=== PATIENT | female | born 1990 | race Two or more races ===

== ENCOUNTER 2016-09-16 20:18 | Emergency (ER) | payer SELFPAY ==
[~2016-09-16] VITALS: Ht 162.6 cm; Wt 99.0 kg
[2016-09-16 20:39] VITALS: BP 127/58
== END 2016-09-16 22:20 | disposition home or self-care (01) ==
LOC: ER 20:25
DX: O26.893 Other specified pregnancy related conditions, third trimester (principal); J06.9 Acute upper respiratory infection, unspecified; Z3A.38 38 weeks gestation of pregnancy

== ENCOUNTER 2016-10-05 16:00 | Observation (INO) | payer OTHER ==
[2016-10-05 17:14] LABS: Urine Bilirubin Negative (Negative); Urine Blood Negative /uL (Negative); Urine Color Yellow (Yellow); Urine Glucose Normal (Normal); Urine Ketone Negative (Negative); Urine Mucus FEW (None Seen); Urine Nitrite Negative (Negative); Urine RBC 1 /hpf (0 - 4); Urine Squamous Epithelial Cell FEW /hpf (<5); Urine Urobilinogen Normal (Negative)
[2016-10-05 18:36] LABS: Basophils # (auto) 0.1 uL; Basophils % (auto) 0.8 % (0.0-2.0); Eosinophils # (auto) 0.1 uL; Eosinophils % (auto) 0.9 % (0.0-7.0); Hematocrit 35.2 % (36.0-46.0); Hemoglobin 11.2 g/dL (12.2-16.2); Lymphocytes # (auto) 2.1 uL; Lymphocytes % (auto) 17.9 % (10.0-50.0); Mean Corpuscular Hemoglobin 27.4 pg (28.0-32.0); Mean Corpuscular Hgb Conc. 31.8 g/dL (32.0-36.0); Mean Corpuscular Volume 86.2 fL (80.0-100.0); Mean Platelet Volume 8.9 fL (7.4-10.4); Monocytes # (auto) 0.9 uL; Monocytes % (auto) 7.9 % (0.0-12.0); Neutrophils # (auto) 8.4 uL; Neutrophils % (auto) 72.5 % (37.0-80.0); Platelet Count (auto) 395 10^3/uL (140-450); Red Cell Distribution Width 14.3 % (11.6-16.0); White Blood Cell 11.6 10^3/uL (4.4-10.8)
== END 2016-10-05 19:22 | disposition home or self-care (01) | DRG 566 ==
LOC: LDRP 16:00
PROVIDERS: ADMIT Obstetrics & Gynecology; ATTEND Obstetrics & Gynecology
DX: O62.9 Abnormality of forces of labor, unspecified (principal); O26.893 Other specified pregnancy related conditions, third trimester; O21.2 Late vomiting of pregnancy; R10.9 Unspecified abdominal pain; Z3A.37 37 weeks gestation of pregnancy
CPT/HCPCS: 36415; 59025; 76805; 76818; 81001; 81002; 85025; G0378; G0434

== ENCOUNTER 2016-10-11 08:25 | Observation (INO) | payer OTHER ==
[2016-10-11] MEDS ORDERED: ceFAZolin 1GM/50ML D5W 50 ML IV ONE (10:01)
[2016-10-12] MEDS ORDERED: PREN-96 PO (16:08)
== END 2016-10-11 11:15 | disposition home or self-care (01) | DRG 566 ==
LOC: LDRP 08:25
PROVIDERS: ADMIT Obstetrics & Gynecology; ATTEND Obstetrics & Gynecology
DX: O62.9 Abnormality of forces of labor, unspecified (principal); O48.0 Post-term pregnancy; Z3A.40 40 weeks gestation of pregnancy; O99.333 Smoking (tobacco) complicating pregnancy, third trimester
CPT/HCPCS: 59025; 76818; 81002; G0378; J0690

== ENCOUNTER 2018-05-24 04:48 | Inpatient (IN) | payer MEDICAID ==
[~2018-05-24] VITALS: Ht 162.6 cm; Wt 99.3 kg
[~2018-05-24 04:48] MED LIST: PREN-96 PO
[2018-05-24] MEDS ORDERED: DERMOPLAST 60ML BOTTLE TOP PRN (05:15)
[2018-05-24] MEDS ORDERED: OXYTOCIN 10UNIT/ML 1ML VIAL IM ONE (05:15)
[2018-05-24] MEDS ORDERED: METHYLERGONOVINE MALEATE 0.2 MG/ML AMP IM PRN (05:15)
[2018-05-24] MEDS ORDERED: PHISODERM TOP SOLN 240ML BTL TOP PRN (05:15)
[2018-05-24] MEDS ORDERED: WITCH HAZEL-GLYCERIN PAD TOP PRN (05:15)
[2018-05-24 05:49] LABS: Basophils # (auto) 0.1 uL; Basophils % (auto) 0.8 % (0.0-2.0); Eosinophils # (auto) 0 uL; Eosinophils % (auto) 0.2 % (0.0-7.0); Hematocrit 37.2 % (36.0-46.0); Hemoglobin 12.1 g/dL (12.2-16.2); Lymphocytes # (auto) 1.4 uL; Lymphocytes % (auto) 8.1 % (10.0-50.0); Mean Corpuscular Hemoglobin 27.8 pg (28.0-32.0); Mean Corpuscular Hgb Conc. 32.4 g/dL (32.0-36.0); Mean Corpuscular Volume 85.8 fL (80.0-100.0); Monocytes # (auto) 0.8 uL; Monocytes % (auto) 4.4 % (0.0-12.0); Neutrophils # (auto) 14.9 uL; Neutrophils % (auto) 86.5 % (37.0-80.0); Nucleated Red Blood Cells % 0.1 %; Platelet Count (auto) 272 10^3/uL (140-450); Red Blood Cells 4.34 10^6/uL (4.0-5.20); Red Cell Distribution Width 15.7 % (11.8-14.3); White Blood Cell 17.2 10^3/uL (4.4-10.8)
[2018-05-24 05:53] LABS: Urine Bacteria NONE SEEN /hpf (None Seen); Urine Blood 1+ /uL (Negative); Urine Mucus FEW (None Seen); Urine Specific Gravity 1.025 (1.001-1.035); Urine WBC 1 /hpf (0 - 5)
[2018-05-24 06:01] LABS: INR 0.92 (0.9-1.15); Partial Thromboplastin Time 24.4 sec (23.78-33.04); Prothrombin Time 9.9 sec (9.27-12.13)
[2018-05-24 06:05] LABS: Albumin 2.5 g/dL (3.4-5.0); BUN/Creatinine Ratio 17.9; Calcium 8.2 mg/dL (8.5-10.1)
[2018-05-24 06:06] LABS: Alcohol, Urine < 3.0 mg/dL (0-5); Amphetamine Screen, Urine NEGATIVE (NEGATIVE); Barbiturate Scree,Urine NEGATIVE (NEGATIVE); Benzodiazephine Screen, Urine NEGATIVE (NEGATIVE); Cannabinoid Screen, Urine NEGATIVE (NEGATIVE); Cocaine Screen, Urine NEGATIVE (NEGATIVE); Opiate Scree,Urine NEGATIVE (NEGATIVE); Phencyclidine Screen, Urine NEGATIVE (NEGATIVE)
[2018-05-24 06:08] LABS: Bilirubin, Total 0.2 mg/dL (0.2-1.0); Total Protein 6.7 g/dL (6.4-8.2)
[2018-05-24] MEDS ORDERED: ACETAMINOPHEN 325 MG TAB PO PRN (06:30)
[2018-05-24] MEDS ORDERED: IBUPROFEN 600 MG TAB PO PRN (06:30)
[2018-05-24 09:04] VITALS: BP 101/55
[2018-05-24 14:42] VITALS: BP 114/55
[2018-05-24 19:00] VITALS: BP 119/51
[2018-05-24 23:00] VITALS: BP 120/69
[2018-05-25 03:30] VITALS: BP 98/48
[2018-05-25 06:05] LABS: RPR Non Reactive (Non Reactive)
[2018-05-25 07:04] VITALS: BP 102/49
[2018-05-25 08:05] LABS: Rubella Antibodies, IgG 1.12 index (Immune >0.99)
[2018-05-25] MEDS ORDERED: TETANUS-DIPTH-ACEL PERTUSSIS 0.5ML SYRG IM ONE (10:45)
[2018-05-25 11:10] VITALS: BP 115/67
[2018-05-25 14:50] VITALS: BP 121/65
== END 2018-05-25 15:40 | disposition home or self-care (01) | DRG 560 ==
LOC: LDRP 04:48
PROVIDERS: ADMIT Obstetrics & Gynecology; ATTEND Obstetrics & Gynecology
DX: Z39.0 Encounter for care and examination of mother immediately after delivery (principal); Z37.0 Single live birth; J45.909 Unspecified asthma, uncomplicated; O99.53 Diseases of the respiratory system complicating the puerperium
CPT/HCPCS: 36415; 80053; 80307; 81001; 85025; 85610; 85730; 86592; 86703; 86762; 86850; 86900; 86901; 87340; 90715; 96372; 96375

== ENCOUNTER 2025-01-16 15:04 | Emergency (ER) | payer MEDICAID, OTHER ==
[~2025-01-16] VITALS: Ht 162.6 cm; Wt 103.5 kg
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
[2025-01-16 16:08] LABS: Urine Bacteria None Seen /hpf (None Seen)
[2025-01-16] MEDS: ACETAMINOPHEN 325 MG TAB PO ONE (16:32)
[2025-01-16 16:34] LABS: Urine Blood Negative /uL (Negative); Urine Clarity Clear (Clear); Urine Color Yellow (Yellow); Urine Mucus MODERATE (None Seen); Urine Protein, UAD TRACE (Negative); Urine Specific Gravity 1.037 (1.001-1.035); Urine Squamous Epithelial Cell FEW /hpf (<5); Urine Urobilinogen Normal (Negative); Urine WBC 4 /HPF (0-5); Urine pH 5.5 (5.0-9.0)
[2025-01-16] MEDS ORDERED: IBUP-1455 PO (17:31)
[2025-01-16] MEDS ORDERED: NITR-87 PO (17:31)
[2025-01-16 19:30] VITALS: BP 109/72; PULSE 78; RESP 16; TEMP 98.3; O2SAT 98
== END 2025-01-16 19:56 | disposition home or self-care (01) ==
LOC: ER 15:04
DX: N39.0 Urinary tract infection, site not specified (principal); N93.9 Abnormal uterine and vaginal bleeding, unspecified; Z88.0 Allergy status to penicillin; Z88.8 Allergy status to other drugs, medicaments and biological substances
CPT/HCPCS: 36415; 81001; 84702